=== PATIENT | female | born 1965 | race Caucasian/White ===

== ENCOUNTER 2016-05-23 19:53 | Emergency (ER) | payer OTHER ==
[2016-05-23 20:03] VITALS: BP 115/50; PULSE 55; RESP 18; TEMP 98.2; O2SAT 96
--- NOTE | 2016-05-23 20:28 | EDPHY ---
H & P Stated Complaint: freq urination pain with urination Time Seen by Provider: 05/23/16 20:09 HPI/ROS: CHIEF COMPLAINT: Dysuria HISTORY OF PRESENT ILLNESS: 50-year-old female complaining of dysuria, hesitancy, frequency since this morning . Denies: Back or flank pain, fever , chills, flu-like symptoms, chest pain, abdominal pain, nausea, vomiting, myalgias. no primary care provider REVIEW OF SYSTEMS: A ten point review of systems was performed and is negative with the exception of the items mentioned in the HPI PAST MEDICAL & SURGICAL HISTORY: No immunosuppressed/compromised conditions SOCIAL HISTORY: nonsmoker PHYSICAL EXAM (Prior to examination, patient consented to physical exam, hands were washed and my usual and customary physical exam procedures followed) 1) GENERAL: Well-developed, well-nourished, alert and oriented. Appears nontoxic . 2) HEAD: Normocephalic 3) HEENT: Sclera anicteric. 4) NECK: Full range of motion, no meningeal signs. 5) LUNGS: Clear auscultation bilaterally, no wheezes, no rhonchi, no retractions. 6) HEART: Regular rate and rhythm. 7) ABDOMEN: No guarding, no rebound, no focal tenderness, negative McBurney's, negative Red's, negative Rovsing's, negative peritoneal sign, 8) MUSCULOSKELETAL: Moving all extremities, no focal areas of tenderness, no obvious trauma. No peripheral edema or discoloration. 9) BACK: No CVA tenderness, 10) SKIN: No rash, no petechiae. 11) Psychiatric: Patient is oriented X 3, there is no agitation. DIFFERENTIAL DIAGNOSIS: in no particular include but limited to cystitis, pyelonephritis, urosepsis - Personal History LMP (Females 10-55): 15-21 Days Ago Current Tetanus/Diphtheria Vaccine: Unsure Current Tetanus Diphtheria and Acellular Pertussis (TDAP): Unsure - Medical/Surgical History Hx Asthma: No Hx Chronic Respiratory Disease: No Hx Diabetes: No Hx Cardiac Disease: No Hx Renal Disease: No Hx Cirrhosis: No Hx Alcoholism: No Hx HIV/AIDS: No Hx Splenectomy or Spleen Trauma: No Other PMH: Frequent UTI's - Social History Smoking Status: Never smoked Constitutional: Initial Vital Signs Temperature (C) 36.8 C 05/23/16 19:58 Heart Rate 55 L 05/23/16 19:58 Respiratory Rate 18 05/23/16 19:58 Blood Pressure 115/50 L 05/23/16 19:58 O2 Sat (%) 96 05/23/16 19:58 O2 Delivery Mode Room Air Allergies/Adverse Reactions: nitrofurantoin [From Macrobid] Allergy (Verified 03/30/15 20:33) nitrofurantoin macrocrystalline [From Macrobid] Allergy (Verified 03/30/15 20:33 ) Penicillins Allergy (Verified 03/30/15 20:33) Sulfa (Sulfonamide Antibiotics) Allergy (Verified 03/30/15 20:33) Home Medications: Medication Instructions Recorded Cephalexin [Keflex] 500 mg PO BID 7 Days 05/23/16 Phenazopyridine HCl [Pyridium] 200 mg PO PC #10 tab 05/23/16 Medical Decision Making ED Course/Re-evaluation: I feel the patient can be treated on an outpatient basis as I believe her to be a competent decision-maker, shows no signs of urosepsis, afebrile, no comorbid medical conditions. Specifically inquired about allergic or adverse reactions to Keflex which she denies. Nonetheless, I have provided acute urinary tract infection red flag signs and symptoms precautions, and reasons to return to the emergency department. The patient understands that this diagnosis is provisional and can never be 100% accurate. Usual and customary warnings were given concerning the clinical impression and all the patient's questions were answered. The patient was instructed to return to the emergency department should her symptoms worsen or return, or develop any new symptoms, otherwise to followup as directed in discharge instructions. - Data Points Laboratory Results: 05/23/16 20:32 Urine Color Pending Urine Appearance Pending Urine pH Pending Ur Specific [place] Pending Urine Protein Pending Urine Ketones Pending Urine Blood Pending Urine Nitrate Pending Urine Bilirubin Pending Urine Urobilinogen Pending Ur Leukocyte Esterase Pending Urine RBC Pending Urine WBC Pending Ur Epithelial Cells Pending Urine Glucose Pending Departure - Departure Disposition: Home, Routine, Self-Care Clinical Impression: Cystitis Condition: Good Instructions: Urinary Tract Infection in Women (ED) Additional Instructions: Return to the ER immediately if you experience fevers/chills, flu like symptoms , inability to tolerate oral intake, nausea or vomiting, or any other symptoms that concern you. Referrals: Huber Mijares MD [Medical Doctor] - 2-3 days, call for appt. Prescriptions: Cephalexin [Keflex] 500 mg PO BID 7 Days Phenazopyridine HCl [Pyridium] 200 mg PO PC #10 tab
[2016-05-23] MEDS ORDERED: CEPHALEXIN 500MG PREPACK#4 BTL TAKEHOME ONE (20:50)
[2016-05-23 20:51] LABS: COLOR PALE YELLOW; LEUKOCYTE ESTERASE,URINE 1+ (NEGATIVE); NITRITE,URINE NEGATIVE (NEGATIVE)
[2016-05-23 20:56] LABS: BACTERIA TRACE /hpf (NONE SEEN)
[2016-05-23] MEDS ORDERED: PHENAZOPYRIDINE HCL 200 MG TAB ONE (20:57)
== END 2016-05-23 21:11 | disposition home or self-care (01) ==
DX: N30.90 Cystitis, unspecified without hematuria (principal); B96.89 Other specified bacterial agents as the cause of diseases classified elsewhere